=== PATIENT | male | born 1995 | race Caucasian/White ===

== ENCOUNTER 2021-08-15 06:31 | Day surgery (SDC) | payer OTHER ==
[~2021-08-15] VITALS: Ht 175.3 cm; Wt 108.2 kg
[2021-08-15 07:10] VITALS: BP 139/102; PULSE 100; TEMP 97.6
[2021-08-15] MEDS ORDERED: PRIL40 PO (07:16)
[2021-08-15 08:15] VITALS: BP 142/83; PULSE 72; TEMP 97
[2021-08-15 08:30] VITALS: BP 132/71; PULSE 69
--- NOTE | 2021-08-15 08:32 | NUR ---
0815 - PT arrives and was settled by Katharine LAZARO. Written report obtained. PT provided ice water and a warm muffin per request; denies nausea and pain. Mother is present. VSS. Will monitor per intervals 0830 - PT denies pain and nausea. VSS. PT expressed desire to be discharged. Call chong remains within reach.
[2021-08-15 08:45] VITALS: BP 130/72; PULSE 82
--- NOTE | 2021-08-15 09:05 | NUR ---
0845 - VSS. DE instructions and educational material reveiwed with the PT who verbalized understanding and signed the realted paperwork. IV discontinued. Catheter tip intact. Pressure bandage applied. NO redness or swelling noted. Call chong remains within reach if needed. Mother left to pull up car. PT denied needing assistance changing into personal clothes.
--- NOTE | 2021-08-15 09:12 | NUR ---
PT dismissed from endo via wheelchair to the PT entrence by Kyra LAZARO. PT's mother has DC packet and personal belongings. PT transferred into the care of his mother, who is present to drive private car.
== END 2021-08-15 09:15 | disposition home or self-care (01) ==
LOC: SDCO 06:31
DX: K20.90 Esophagitis, unspecified without bleeding (principal); K29.30 Chronic superficial gastritis without bleeding; K63.89 Other specified diseases of intestine; K92.1 Melena; Q39.8 Other congenital malformations of esophagus; B96.81 Helicobacter pylori [H. pylori] as the cause of diseases classified elsewhere
CPT/HCPCS: J2704; J7120